=== PATIENT | female | born 1975 | race Caucasian/White ===

== ENCOUNTER 2017-12-19 09:00 | Day surgery (SDC) | payer BC ==
[~2017-12-19 09:00] MED LIST: ACETAMINOPHEN 1,000 MG/100 ML BTL IV ONE; CEFAZOLIN 2 Gram 2 GM/50 ML BAG IVPB ONE
[2017-12-19] MEDS ORDERED: BUPIVACAINE LIPOSOME/PF 133MG/10ML VIAL IV ONE (09:01)
[2017-12-19] MEDS ORDERED: MIDAZOLAM HCL 2MG/2ML VIAL IV ONE ×2 (09:01)
[2017-12-19] MEDS ORDERED: FAMOTIDINE 20MG TABLET PO ONE (09:01)
[2017-12-19] MEDS ORDERED: METOCLOPRAMIDE 10 MG TABLET PO ONE (09:01)
[2017-12-19] MEDS ORDERED: KETAMINE HCL 100MG/1ML VIAL INJ ONE (09:01)
[2017-12-19] MEDS ORDERED: METHYLPREDNISOLONE 40MG/VIAL IM ONE (09:01)
[2017-12-19] MEDS ORDERED: FENTANYL PF 100MCG/2ML VIAL IV ONE (09:01)
[2017-12-19] MEDS ORDERED: SCOPOLAMINE 1 PATCH TDSY TD ONE (09:01)
[2017-12-19] MEDS ORDERED: BUPIVACAINE 0.5% (5MG/ML) PF 30ML VIAL IVP ONE (09:01)
[2017-12-19] MEDS ORDERED: ONDANSETRON HCL IV 4 MG/2 ML VIAL IVP ONE (09:01)
[2017-12-19] MEDS ORDERED: MORPHINE SULFATE PF 10MG/10ML VIAL IV ONE (09:01)
[2017-12-19] MEDS ORDERED: LIDOCAINE 2% MDV (20MG/ML) 20ML VIAL IV ONE (09:01)
[2017-12-19] MEDS ORDERED: PROPOFOL 10 MG/ML VIAL IV ONE (09:01)
[2017-12-19] MEDS ORDERED: GLYCOPYRROLATE 0.2 MG/ML ML IV ONE (09:01)
[2017-12-19] MEDS ORDERED: BUPIVACAINE 0.5% W/EPI MPF 30 ML VIAL IVP ONE (09:01)
[2017-12-19] MEDS ORDERED: DEXAMETHASONE 4 MG/ML 1ML VIAL IVP ONE (09:01)
--- NOTE | 2017-12-25 14:10 | Operative Note ---
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 POSTOPERATIVE DIAGNOSES: 1. Right shoulder impingement. 2. Calcific tendonitis. 3. Arthrosis distal clavicle. 4. Complex glenohumeral labral tear superiorly and posteriorly. OPERATION: 1. Right shoulder arthroscopy with interarticular debridement. 2. Right shoulder open acromioplasty, CA ligament resection, subacromial bursectomy, and rotator cuff debridement. 3. Right shoulder distal clavicle resection. Staff Surgeon: Juanjo Vences MD Anesthesia: General. Preparation: Chloraprep. Individual Considerations: None. PROCEDURE: The patient was taken to the operating room, placed supine on the operating room table. She had a successful induction with general anesthetic. Her right shoulder was prepped and draped in the usual fashion. Examination under anesthesia showed no instability and good motion. The patient had a posterior portal identified for arthroscopy. Skin was infiltrated with 0.5% Marcaine with epinephrine prior. An 18-gauge spinal needle was placed in the joint, and the shoulder was inflated with normal saline with a 60-mL syringe. A stab wound was made and a blunt-tipped trocar for the scope was easily placed in the joint. The joint was inflated with normal saline. An anterior accessory portal was then made just inferior to the intact long head of the biceps tendon in retrograde fashion with a Wissinger allison, and the joint was irrigated out. The patient had an intact rotator cuff and intact glenohumeral joint. The long head was intact. Subscap was normal. No loose bodies or significant synovitis was seen inferiorly. There was some anteriorly and there was fraying of the labrum superiorly and posteriorly but not enough where it detached the long head. This was debrided all out with a shaver. After irrigation, portals were closed with karla. The patient had an anterior approach to the subacromial space and distal clavicle. Skin was infiltrated with 0.5% Marcaine with epinephrine prior. Sharp dissection carried down through skin and subcutaneous tissues. Small veins were coagulated with a Bovie. An anterior deltoid interval was developed. Care was taken not to split the deltoid more than about 4 cm distal to the anterior tip of the acromion to prevent injury to the axillary nerve. Once in the subacromial space, there was an extremely thick bursa, a fairly large spur downsloping acromion, and spurs at the acromioclavicular joint. The deltoid was then taken subperiosteally off the anterior aspect of the acromion, over the top of the intact CA ligament, and off the anterior aspect of the degenerated distal clavicle. CA ligament was resected with a Bovie. Distal clavicle was resected with an oscillating saw taking just less than a centimeter because she had a very diminutive stature. An anterior acromioplasty was performed taking maybe 6-7 mm again because she was diminutive and then tapering towards posteromedially to include the spurs at the AC joint. The undersurface was then smoothed with a rasp. An extremely thick bursa was debrided out. After I did this, I could see the rotator cuff was contused and there was a small area of calcification deep. I did my best to clean it up but most of it was deep and I figured since I got rid of the nidus formation, which were the spurs, that would be adequate. I thought doing any more might cause more damage. After irrigation, the deltoid was reattached to the remaining acromion with multiple interrupted #2 Vicryl going directly through the bony acromion. The periosteal cup of the distal clavicle was closed with running #2 Vicryl. Anterior deltoid interval was closed with running #1 Vicryl. Subcu was closed in layers with 2-0 plus Vicryl and skin was closed with closed with running 3-0 quill. The patient had about 20 mL of 0.5% Marcaine with epinephrine along with 40 mg of Depo-Medrol injected into the subacromial space. A sterile bulky compressive dressing was applied. The patient tolerated the procedure well. Needle and sponge counts were correct. Estimated blood loss was minimal. She was taken back to recovery in good condition. There were no complications. LAVERNE
== END 2017-12-19 13:50 | disposition home or self-care (01) ==
LOC: SUR 09:00
PROVIDERS: ATTEND Orthopaedic Surgery
DX: S43.431A Superior glenoid labrum lesion of right shoulder, initial encounter (principal); M75.41 Impingement syndrome of right shoulder; M19.011 Primary osteoarthritis, right shoulder; E11.9 Type 2 diabetes mellitus without complications
CPT/HCPCS: 29822; 23120; 23130; 01630; 64418; J2405; J3010; J0690; C9290; J1030